=== PATIENT | male | born 1945 | race Caucasian/White ===

== ENCOUNTER → 2019-12-04 10:25 | Outpatient (REF) | payer MEDICARE, OTHER, SELFPAY | LOC: ANHLAB 10:25 | PROVIDERS: Visit Provider Nurse Practitioner | DX: C44.311 Basal cell carcinoma of skin of nose (principal) | CPT/HCPCS: 88305; 88331 ==

== ENCOUNTER 2022-10-23 11:20 | Emergency (ER) | payer MEDICARE, OTHER, SELFPAY ==
[2022-10-23 11:33] VITALS: BP 199/84; PULSE 88; RESP 16; TEMP 36.8; O2SAT 96
--- NOTE | 2022-10-23 11:46 | ED.EAR ---
HPI - Ear Problem General Chief complaint: Ear Stated complaint: Ears/Can't Hear Source: patient, family and RN notes reviewed History of Present Illness HPI Narrative: 77 yo M presents to urgent care with sister at side. Sister states pt has been hard of hearing for the last 2-3 months and she suspects he has wax buildup in his ears again. Pt denies any pain. Pt has no complaints. Related Data Home Medications Medication Instructions Recorded Confirmed carvedilol 3.125 mg tablet 3.125 mg PO Q12H 12/04/19 10/23/22 diazepam 2 mg tablet (Valium) 2 mg PO BID PRN Anxiety 12/04/19 10/23/22 hydrochlorothiazide 12.5 mg capsule 12.5 mg PO DAILY 12/04/19 10/23/22 losartan 25 mg tablet 25 mg PO DAILY 12/04/19 10/23/22 meclizine 12.5 mg tablet 12.5 mg PO BID 12/04/19 10/23/22 potassium chloride 8 mEq 8 meq PO DAILY 12/04/19 10/23/22 tablet,extended release (K-Tab) topiramate 15 mg sprinkle capsule 75 mg PO DAILY 12/04/19 10/23/22 (Topamax) Allergies Allergy/AdvReac Type Severity Reaction Status Date / Time trimethoprim Allergy Unknown Unknown Verified 10/23/22 11:38 amitriptyline [From Elavil] Allergy Unknown Verified 10/23/22 11:38 citalopram Allergy Unknown Verified 10/23/22 11:38 dutasteride [From Avodart] Allergy Unknown Verified 10/23/22 11:38 enalaprilat [From Vasotec] Allergy Unknown Verified 10/23/22 11:38 furosemide [From Lasix] Allergy Unknown Verified 10/23/22 11:38 methysergide [From Sansert] Allergy Unknown Verified 10/23/22 11:38 norethindrone [From Nor-Q-D] Allergy Unknown Verified 10/23/22 11:38 prednisone Allergy Unknown Verified 10/23/22 11:38 pregabalin [From Lyrica] Allergy Unknown Verified 10/23/22 11:38 Review of Systems Review of Systems: CONSTITUTIONAL: Denies fever, chills, or sweats. EYES: Denies visual changes, redness, or discharge. ENT: Denies otalgia but reports hard of hearing CARDIOVASCULAR: Denies chest pain, palpitations, or edema. RESPIRATORY: Denies cough or dyspnea. GASTROINTESTINAL: Denies abdominal pain, nausea, vomiting, or diarrhea. GENITOURINARY: Denies dysuria or hematuria. SKIN: Denies rash or itching. MUSCULOSKELETAL: Denies back pain, joint pain, or myalgia. NEUROLOGIC: Denies headache, numbness, or weakness. Pertinent positives per HPI. [facility] Past Medical History Medical History (Updated 10/23/22 @ 11:50 by Concepcion Burt, CLUB WAITER/WAITRESS) History of anemia History of arthritis History of basal cell carcinoma History of cataract History of esophageal reflux History of hypertension History of neuropathy Surgical History Surgical History (Updated 12/04/19 @ 10:21 by Mehreen Grant) History of basal cell carcinoma (BCC) excision History of cataract surgery History of hernia surgery History of knee surgery History of removal of skin mole Family History Family History (Updated 12/04/19 @ 10:23 by Mehreen Grant) Sibling Breast cancer Mother Breast cancer Unknown Hypertension Social History Social History Smoking status: Never smoker Alcohol intake: never Comments At the time of my signature, I reviewed and agree with the nursing past medical, surgical, social, and family history. There is no relevant family history pertinent to the patient complaint. Exam Narrative: GENERAL: This is a well-nourished, well-developed patient, in no apparent distress. HEAD: normocephalic, atraumatic. EYES: Sclera clear/white. Vision is grossly intact. EARS: External ears normal, auditory canals clear and without drainage, patient is hard of hearing. Left canal is patent with minimal cerumen noted. Right canal noted to have cerumen impaction. NOSE: External nose normal with no obvious nasal discharge, nares without redness, no rhinorrhea. THROAT: Mucous membranes moist, posterior pharynx clear. NECK: Neck supple, non-tender without lymphadenopathy, masses or thyromegaly. CARDIOVASCULAR: Regular rate RESPIRATORY: No respiratory distress SKIN: w
== END 2022-10-23 12:04 | disposition home or self-care (01) ==
PROVIDERS: Emergency Provider Nurse Practitioner Family; PCP Internal Medicine
DX: H61.21 Impacted cerumen, right ear (principal); M19.90 Unspecified osteoarthritis, unspecified site; K21.9 Gastro-esophageal reflux disease without esophagitis; I10 Essential (primary) hypertension; G62.9 Polyneuropathy, unspecified; Z85.828 Personal history of other malignant neoplasm of skin
CPT/HCPCS: 69209; 99213; A9270; G0463